=== PATIENT | female | born 1935 | race Caucasian/White ===

== ENCOUNTER 2017-11-02 14:38 | Emergency (ER) | payer MEDICARE ==
[2017-11-08 13:54] VITALS: BMI 38.2
== END 2017-11-02 19:36 | disposition home or self-care (01) ==
LOC: D.ER 14:38
DX: S40.012A Contusion of left shoulder, initial encounter (principal); W01.0XXA Fall on same level from slipping, tripping and stumbling without subsequent striking against object, initial encounter; Y93.89 Activity, other specified; Y92.012 Bathroom of single-family (private) house as the place of occurrence of the external cause; S92.321A Displaced fracture of second metatarsal bone, right foot, initial encounter for closed fracture; S92.331A Displaced fracture of third metatarsal bone, right foot, initial encounter for closed fracture; S92.341A Displaced fracture of fourth metatarsal bone, right foot, initial encounter for closed fracture; S62.111A Displaced fracture of triquetrum [cuneiform] bone, right wrist, initial encounter for closed fracture; I10 Essential (primary) hypertension; G47.00 Insomnia, unspecified

== ENCOUNTER 2017-11-03 17:08 | Inpatient (IN) | payer MEDICARE, OTHER ==
[~2017-11-03] VITALS: Ht 165.1 cm; Wt 104.5 kg
--- NOTE | ~2017-11-03 | EC ---
PATIENT:RICHARD CAMARENA DATE OF SERVICE: 11/03/17 SEX: F MEDICAL RECORD: [id number] DATE OF : [birth year] LOCATION:D.M2 D.213 AGE OF PATIENT: 81 ADMISSION DATE: 11/03/17 REFERRING PHYSICIAN: INTERPRETING PHYSICIAN: NATHAN LEGER MD ECHOCARDIOGRAM REPORT ECHO CHARGES 4 ECHO COMPLETE CLINICAL DIAGNOSIS: CHF ECHOCARDIOGRAPHIC MEASUREMENTS (adult normal given) AC root (d.<3.7cm) 3.4 cm LV Septum d (<1.2 cm> 1.6 cm Valve Excursion 1.7 cm LV Septum (systole) 2.2 cm Left Atria (s.<4.0cm> 4.1 cm LVPW d(<1.2cm) 1.8 cm RV (d.<2.3cm) 3.7 cm LVPW (sytole) 2.3 cm LV diastole(<5.6CM) 4.0 cm MV E-F(>70mm/sec) cm LV systole 2.3 cm LVOT Diameter 1.7 cm MV exc.(>10mm) 1.6 cm Est.ejection fraction (50-75%) % Pericardial Effusion N DOPPLER: LVIT cm/sec A 113 cm/sec E 97.0 cm/sec LA cm/sec RVSP 38 mmHg LVOT 129 cm/sec AOP1/2T m/s Asc. Ao 189 cm/sec RVOT 104 cm/sec RA cm/sec PA 134 cm/sec AV Gradient Peak 14.22mmHg AV Mean 6.35 mmHg AV Area 1.5 cm MV Gradient Peak 6.10 mmHg MV Mean 2.51 mmHg MV Area cm COMMENTS: Executive Producer: Zachariah DALTON Hadoop Analyst: 2 Dr. Gabriel TAPE# PACS DATE OF SERVICE: 11/05/2017 PROCEDURE: Echocardiogram. FINDINGS: 1. Left ventricular chamber size is within normal limits. Left ventricular systolic function is normal. Overall ejection fraction estimated at 65%. 2. Left atrium is mildly enlarged at 4.1 cm. Right atrium and right ventricular chamber sizes are as well mildly dilated. 3. Valvular structures have normal structure and motion. No evidence of mitral ECHOCARDIOGRAM REPORT [id number] RICHARD CAMARENA valve prolapse is present. 4. Doppler interrogation reveals trace mitral regurgitation, mild tricuspid regurgitation, no other valvular insufficiency or stenosis. Pulmonary systolic pressure is normal estimated 30 mmHg. 5. No evidence of pericardial effusion or left ventricular thrombus. TRANSINT:[id number] Voice Confirmation ID: [id number] DOCUMENT ID: [id number] NATHAN LEGER MD at 1800 CC: [id number] DICTATION DATE: 11/05/17 1314 AUTOMOTIVE WORKER: 11/05/17 1321 DIS IN 11/06/17 [place] [id number] [place] [id number]
[2017-11-03 19:00] VITALS: BP 178/89
[2017-11-03 19:03] LABS: BASOPHILS 0.2 % (0-2); EOSINOPHILS 1.3 % (0-7); HEMATOCRIT 42.6 % (36.0-48.0); HEMOGLOBIN 14.2 g/dL (12-16); IMMATURE GRANULOCYTES 0.3 % (0-5); LYMPHOCYTES 15.1 % (15-50); MCH 31.6 pg (26.0-34.0); MCHC 33.3 g/dL (31.0-37.0); MCV 94.9 fL (80.0-100.0); MEAN PLATELET VOLUME 10.5 fL (7.4-10.4); MONOCYTES 8.6 % (2-11); NEUTROPHILS 74.5 % (40-80); PLATELET COUNT 255 10x3/uL (130-400); RBC 4.49 10x6/uL (4.00-5.40); RDW 14.2 % (11.5-14.5); WBC 10.4 10x3/uL (4.8-10.8)
[2017-11-03 19:44] LABS: ALBUMIN 4.1 g/dL (3.4-5.0); ALKALINE PHOSPHATASE 82 U/L (46-116); ALT (SGPT) 21 U/L (10-68); BILIRUBIN - TOTAL 0.47 mg/dL (0.2-1.3); CALC OSMOLALITY 292 mosm/kg (275-300); CALCIUM 9.3 mg/dL (8.5-10.1); CARBON DIOXIDE 25.9 mmol/L (21.0-32.0); CHLORIDE - SERUM 107 mmol/L (98-107); CREATININE - SERUM 0.6 mg/dL (0.6-1.3); GLUCOSE 108 mg/dL (74-106); POTASSIUM - SERUM 4.1 mmol/L (3.5-5.1); PROTEIN - SERUM 7.3 g/dL (6.4-8.2); SODIUM 145 mmol/L (136-145); UREA NITROGEN 20 mg/dL (7-18); eGFR NON AFRICAN AMERICAN > 90 mL/min (90-120)
[2017-11-03 20:04] LABS: CKMB 2.1 U/L (0.0-3.6); CREATINE KINASE 258 UL (21-215); MAGNESIUM - SERUM 2.4 mg/dL (1.8-2.4); TROPONIN-I 0.001 ng/mL (0.000-0.060)
[2017-11-03 20:05] LABS: THYROID STIMULATING HORMONE 1.03 uIU/mL (0.36-3.74)
[2017-11-03 21:36] LABS: APPEARANCE CLEAR (CLEAR); BILIRUBIN NEGATIVE (NEGATIVE); COLOR YELLOW (YELLOW); GLUCOSE NEGATIVE (NEGATIVE); KETONE SMALL mg/dL (NEGATIVE); NITRITE NEGATIVE (NEGATIVE); PROTEIN NEGATIVE (NEGATIVE); UROBILINOGEN NORMAL (NORMAL)
[2017-11-03 21:40] LABS: BACTERIA FEW /hpf (NONE SEEN); EPITHELIAL CELLS 0-5 /hpf (0-5); MUCUS <1+ /lpf (NONE SEEN); RED CELLS - URINE OCC /hpf (0-5)
[2017-11-04] MEDS ORDERED: XANAX1 MG PO (00:10)
[2017-11-04] MEDS ORDERED: LOPRESSOR25 MG PO (00:11)
[2017-11-04 04:00] VITALS: BP 172/55
[2017-11-04 04:08] VITALS: BP 178/89; BMI 38.3
[2017-11-04 06:14] LABS: BASOPHILS 0.2 % (0-2); EOSINOPHILS 3.7 % (0-7); HEMATOCRIT 36.9 % (36.0-48.0); HEMOGLOBIN 12.1 g/dL (12-16); IMMATURE GRANULOCYTES 0.3 % (0-5); LYMPHOCYTES 20.5 % (15-50); MCHC 32.8 g/dL (31.0-37.0); MCV 94.6 fL (80.0-100.0); MONOCYTES 10.5 % (2-11); NEUTROPHILS 64.8 % (40-80); PLATELET COUNT 228 10x3/uL (130-400); RDW 14.4 % (11.5-14.5); WBC 8.8 10x3/uL (4.8-10.8)
[2017-11-04 06:42] LABS: CALC OSMOLALITY 282 mosm/kg (275-300); CALCIUM 8.3 mg/dL (8.5-10.1); CARBON DIOXIDE 25.9 mmol/L (21.0-32.0); CHLORIDE - SERUM 106 mmol/L (98-107); CREATININE - SERUM 0.6 mg/dL (0.6-1.3); GLUCOSE 95 mg/dL (74-106); SODIUM 141 mmol/L (136-145); UREA NITROGEN 17 mg/dL (7-18); eGFR NON AFRICAN AMERICAN > 90 mL/min (90-120)
[2017-11-04 08:47] VITALS: BP 132/57
[2017-11-04 12:33] VITALS: BP 116/59
[2017-11-04 15:05] VITALS: Ht 165.1 cm; Wt 104.5 kg
[2017-11-04 16:28] VITALS: BP 131/64
[2017-11-04 21:44] VITALS: BP 129/47
[2017-11-05 01:15] VITALS: BP 122/71
[2017-11-05 05:58] VITALS: BP 152/81
[2017-11-05 06:11] LABS: BASOPHILS 0.3 % (0-2); EOSINOPHILS 4.8 % (0-7); HEMATOCRIT 39.8 % (36.0-48.0); HEMOGLOBIN 12.8 g/dL (12-16); IMMATURE GRANULOCYTES 0.3 % (0-5); MCH 31.1 pg (26.0-34.0); MCHC 32.2 g/dL (31.0-37.0); MONOCYTES 8.7 % (2-11); NEUTROPHILS 64.9 % (40-80); PLATELET COUNT 239 10x3/uL (130-400); RBC 4.12 10x6/uL (4.00-5.40); RDW 14.4 % (11.5-14.5); WBC 8.6 10x3/uL (4.8-10.8)
[2017-11-05 06:25] LABS: CALC OSMOLALITY 284 mosm/kg (275-300); CALCIUM 8.6 mg/dL (8.5-10.1); CARBON DIOXIDE 26.1 mmol/L (21.0-32.0); CHLORIDE - SERUM 107 mmol/L (98-107); CREATININE - SERUM 0.7 mg/dL (0.6-1.3); GLUCOSE 101 mg/dL (74-106); POTASSIUM - SERUM 4.1 mmol/L (3.5-5.1); SODIUM 142 mmol/L (136-145); UREA NITROGEN 17 mg/dL (7-18); eGFR NON AFRICAN AMERICAN 85 mL/min (90-120)
[2017-11-05 06:29] LABS: MCV 96.6 fL (80.0-100.0)
[2017-11-05 08:06] VITALS: BP 160/76
[2017-11-05 11:18] VITALS: BP 134/72
[2017-11-05 15:42] VITALS: BP 141/71
[2017-11-05 19:00] VITALS: BP 189/83
[2017-11-06 04:00] VITALS: BP 158/80
[2017-11-06 06:52] LABS: HEMATOCRIT 39.2 % (36.0-48.0); LYMPHOCYTES 20.7 % (15-50); MCHC 33.2 g/dL (31.0-37.0); MEAN PLATELET VOLUME 10.1 fL (7.4-10.4); NEUTROPHILS 69.6 % (40-80); PLATELET COUNT 239 10x3/uL (130-400); RBC 4.19 10x6/uL (4.00-5.40); RDW 13.8 % (11.5-14.5)
[2017-11-06 06:53] LABS: MCV 93.6 fL (80.0-100.0)
[2017-11-06 07:03] LABS: CALC OSMOLALITY 283 mosm/kg (275-300); CALCIUM 8.8 mg/dL (8.5-10.1); CARBON DIOXIDE 27.6 mmol/L (21.0-32.0); CHLORIDE - SERUM 107 mmol/L (98-107); CREATININE - SERUM 0.7 mg/dL (0.6-1.3); GLUCOSE 102 mg/dL (74-106); SODIUM 142 mmol/L (136-145); UREA NITROGEN 16 mg/dL (7-18); eGFR NON AFRICAN AMERICAN 85 mL/min (90-120)
[2017-11-06 08:23] VITALS: BP 125/79
[2017-11-06 11:42] VITALS: BP 100/89
[2017-11-06 15:47] VITALS: BP 176/81
== END 2017-11-06 17:56 | DRG 194 ==
LOC: D.ER 17:08 → D.M2 21:34
PROVIDERS: Family Medicine; Internal Medicine Nephrology
DX: J18.9 Pneumonia, unspecified organism (principal); J98.11 Atelectasis; N17.9 Acute kidney failure, unspecified; G82.20 Paraplegia, unspecified; M25.512 Pain in left shoulder; I10 Essential (primary) hypertension; E78.5 Hyperlipidemia, unspecified; I34.1 Nonrheumatic mitral (valve) prolapse; S62.101D Fracture of unspecified carpal bone, right wrist, subsequent encounter for fracture with routine healing; S92.901D Unspecified fracture of right foot, subsequent encounter for fracture with routine healing; W19.XXXD Unspecified fall, subsequent encounter; G47.00 Insomnia, unspecified; Z86.12 Personal history of poliomyelitis

== ENCOUNTER 2017-11-06 17:04 | Inpatient (IN) | payer MEDICARE, OTHER ==
[~2017-11-06] VITALS: Ht 165.1 cm; Wt 104.3 kg
--- NOTE | ~2017-11-06 | RHP ---
PATIENT: RICHARD CAMARENA MEDICAL RECORD: [id number] ACCOUNT: [id number] LOCATION:[facility]1114 : 37 ADMISSION DATE: 11/06/17 REHABILITATION HISTORY AND PHYSICAL EXAMINATION POST ADMISSION PHYSICIAN EXAMINATION DATE OF ADMISSION: 11/06/2017. ADMITTING DIAGNOSES: Debility secondary to right lower lobe pneumonia. HISTORY OF PRESENT ILLNESS: The patient is admitted to an inpatient rehab for debility secondary to pneumonia. A 81-year-old female patient with a history of hypertension, hyperlipidemia, mitral valve prolapse, and insomnia, presented to our Emergency Room with complaints of having increasing shortness of breath that had presented approximately 1-1/2 weeks prior to this. The patient stated she started getting the cough a week prior to this. On 11/03/2017, she took some vitamins, felt somewhat better. On 11/02/2017, she fell and when she was seen in the Emergency Room, we found to have a fracture on her right foot and wrist area and left shoulder. She was to follow up with ortho surgery the following day; however, she cannot get out of her car at her appointment due to increased pain and shortness of breath. She was brought in for further evaluation and treatment, was admitted for a right lower lobe pneumonia, pulmonary edema, acute kidney injury. 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 She has had increased pain secondary to her fall. She is having difficulty with ADLs and mobility at this time. She was moderately independent with both ADLs and mobility prior to the recent fall. She is currently set up from total assist for ADLs and max assist for mobility. She would like to return back to her apartment if possible. COMORBIDITIES: Include pneumonia, pulmonary edema, postpolio syndrome, hypertension, right foot fracture, right wrist fracture, acute kidney injury, hyperlipidemia, paraplegic gait. PAST MEDICAL HISTORY: Significant for weakness. She has had tinnitus, hypertension, constipation, polio, paralysis, insomnia. PAST SURGICAL HISTORY: Includes a fusion of both ankles. ALLERGIES: CODEINE AND ERYTHROMYCIN. CURRENT MEDICATIONS: Include Tylenol 650 q.h.s., acetaminophen 650 q.4 hours p.r.n., metoprolol 25 mg b.i.d., Xanax 1 mg q.h.s., and MiraLax 17 grams in 8 ounces of water daily. HABITS: No tobacco use. FAMILY HISTORY: Noncontributory. SOCIAL HISTORY: The patient hopes to return back home to her apartment if possible. REVIEW OF SYSTEMS: GENERAL: Does complain of weakness. HEENT: She denies cold, cough, or congestion. HISTORY AND PHYSICAL [id number] NICOLRICHARD CARDIOVASCULAR: Denies chest pain. PHYSICAL EXAMINATION: VITAL SIGNS: Stable, afebrile. GENERAL: A somewhat obese female, in no acute distress, alert upon exam. HEENT: Normocephalic and atraumatic. Mucosa moist. NECK: Supple. No lymphadenopathy. LUNGS: Clear. HEART: Regular rate and rhythm. ABDOMEN: Benign. EXTREMITIES: Does have noted deformities of her ankles and also bruising of her upper extremities. NEUROLOGIC: Consistent with diffuse weakness. LABORATORY DATA: Her white count 9.2, H&H 12 and 37, and platelet count was noted to be 246. Chemistries show a sodium 142, potassium 4.2, BUN and creatinine of 23 and 0.7 and blood sugar was noted to be 101. ASSESSMENT: This is a 81-year-old female patient admitted to the rehab with a working diagnosis of debility secondary to pneumonia complicated by postpolio syndrome. The patient has potential to make improvement. We instituted the following multidisciplinary therapies including to, but not limited to physical, occupational, respiratory, speech, nutritional services, prosthetics and orthotics. Given her complex condition and risk for more complications, rehabilitation services cannot be provided at a low level of care such as a shelter facility. PLAN: 1. Admit to [facility] rehab for intensive inpatient therapy to include the following disciplines: A. Physical therapy to improve gait, all transfer skills and bed mobility to a modified independent level. B. Occupational therapy to improve activities of daily living to a modified independent level. C. Case management to assist with discharge planning and placement options. D. Nutrition to assist with nutritional needs. E. Rehabilitation nursing to assist with monitoring the patient's underlying medical conditions and to assist with any type of bowel or bladder management. 2. The patient's current medication and medical care will be continued. 3. The patient will be placed on standard fall precautions. 4. The patient's estimated length of stay is approximately 7-10 days. 5. Discuss this patient during care team staff meeting this week. TRANSINT:[id number] Voice Confirmation ID: [id number] DOCUMENT ID: [id number] MELODY notes whether there has been none or any medical/functional change since admission: - No change since prescreen. MELODY attests patient continues to be appropriate for IRF: - Continues to be appropriate. HISTORY AND PHYSICAL [id number] RICHARD CAMARENA SCOTT MD at 1802 CC: [id number] DICTATION DATE: 11/08/17 0843 CREDIT AUTHORIZER: 11/08/17 1043 ADM IN [facility] [address] [place] [id number]
[~2017-11-06 17:04] MED LIST: LOPRESSOR25 MG PO; XANAX1 MG PO
[2017-11-06 19:46] VITALS: BP 138/72; BMI 38.3
[2017-11-07 05:08] LABS: BASOPHILS 0.2 % (0-2); EOSINOPHILS 4.8 % (0-7); HEMATOCRIT 37.9 % (36.0-48.0); HEMOGLOBIN 12.5 g/dL (12-16); IMMATURE GRANULOCYTES 0.2 % (0-5); LYMPHOCYTES 17.8 % (15-50); MCH 31.1 pg (26.0-34.0); MCV 94.3 fL (80.0-100.0); MEAN PLATELET VOLUME 10.3 fL (7.4-10.4); MONOCYTES 8.9 % (2-11); NEUTROPHILS 68.1 % (40-80); PLATELET COUNT 246 10x3/uL (130-400); RBC 4.02 10x6/uL (4.00-5.40); WBC 9.2 10x3/uL (4.8-10.8)
[2017-11-07 05:15] LABS: CALC OSMOLALITY 286 mosm/kg (275-300); CALCIUM 8.5 mg/dL (8.5-10.1); CARBON DIOXIDE 26.7 mmol/L (21.0-32.0); CHLORIDE - SERUM 107 mmol/L (98-107); CREATININE - SERUM 0.7 mg/dL (0.6-1.3); GLUCOSE 101 mg/dL (74-106); POTASSIUM - SERUM 4.2 mmol/L (3.5-5.1); SODIUM 142 mmol/L (136-145); eGFR NON AFRICAN AMERICAN 85 mL/min (90-120)
[2017-11-07 05:16] LABS: UREA NITROGEN 23 mg/dL (7-18)
[2017-11-07 09:00] VITALS: BP 148/57
[2017-11-07 19:33] VITALS: BP 160/92
[2017-11-08 08:00] VITALS: BP 211/91
[2017-11-08 13:54] VITALS: Ht 165.1 cm; Wt 104.3 kg
[2017-11-08 20:31] VITALS: BP 144/60
[2017-11-09 08:00] VITALS: BP 176/69
[2017-11-09 21:00] VITALS: BP 175/80
[2017-11-10 06:48] LABS: BASOPHILS 0.4 % (0-2); EOSINOPHILS 6.5 % (0-7); HEMATOCRIT 39.1 % (36.0-48.0); HEMOGLOBIN 12.8 g/dL (12-16); IMMATURE GRANULOCYTES 0.1 % (0-5); LYMPHOCYTES 24.4 % (15-50); MCH 30.9 pg (26.0-34.0); MCHC 32.7 g/dL (31.0-37.0); MCV 94.4 fL (80.0-100.0); MEAN PLATELET VOLUME 10.2 fL (7.4-10.4); MONOCYTES 7.2 % (2-11); NEUTROPHILS 61.4 % (40-80); PLATELET COUNT 282 10x3/uL (130-400); RBC 4.14 10x6/uL (4.00-5.40); RDW 14.3 % (11.5-14.5); WBC 6.9 10x3/uL (4.8-10.8)
[2017-11-10 06:59] LABS: CALC OSMOLALITY 286 mosm/kg (275-300); CALCIUM 8.6 mg/dL (8.5-10.1); CARBON DIOXIDE 27.5 mmol/L (21.0-32.0); CHLORIDE - SERUM 108 mmol/L (98-107); CREATININE - SERUM 0.6 mg/dL (0.6-1.3); GLUCOSE 93 mg/dL (74-106); POTASSIUM - SERUM 4.3 mmol/L (3.5-5.1); SODIUM 142 mmol/L (136-145); UREA NITROGEN 23 mg/dL (7-18); eGFR NON AFRICAN AMERICAN > 90 mL/min (90-120)
[2017-11-10 07:46] VITALS: BP 210/79
[2017-11-10 19:07] VITALS: BP 160/88
[2017-11-11 20:26] VITALS: BP 128/87
[2017-11-12 05:46] LABS: BASOPHILS 0.3 % (0-2); EOSINOPHILS 5.2 % (0-7); HEMATOCRIT 37.1 % (36.0-48.0); HEMOGLOBIN 12.2 g/dL (12-16); IMMATURE GRANULOCYTES 0.3 % (0-5); LYMPHOCYTES 27.7 % (15-50); MCHC 32.9 g/dL (31.0-37.0); MCV 94.4 fL (80.0-100.0); MEAN PLATELET VOLUME 10.3 fL (7.4-10.4); MONOCYTES 9.1 % (2-11); NEUTROPHILS 57.4 % (40-80); PLATELET COUNT 278 10x3/uL (130-400); RBC 3.93 10x6/uL (4.00-5.40); WBC 6.9 10x3/uL (4.8-10.8)
[2017-11-12 05:54] LABS: CALC OSMOLALITY 282 mosm/kg (275-300); CALCIUM 8.5 mg/dL (8.5-10.1); CHLORIDE - SERUM 106 mmol/L (98-107); CREATININE - SERUM 0.7 mg/dL (0.6-1.3); GLUCOSE 92 mg/dL (74-106); POTASSIUM - SERUM 4.2 mmol/L (3.5-5.1); SODIUM 140 mmol/L (136-145); UREA NITROGEN 24 mg/dL (7-18); eGFR NON AFRICAN AMERICAN 85 mL/min (90-120)
[2017-11-12 08:00] VITALS: BP 143/56
[2017-11-12 19:00] VITALS: BP 146/51
[2017-11-13 08:00] VITALS: BP 152/065
[2017-11-13 19:35] VITALS: BP 146/66
[2017-11-14 09:12] VITALS: BP 134/75; BP 183/78
[2017-11-14 20:00] VITALS: BP 145/52
[2017-11-15 06:09] LABS: BASOPHILS 0.3 % (0-2); HEMATOCRIT 37.5 % (36.0-48.0); HEMOGLOBIN 12.3 g/dL (12-16); IMMATURE GRANULOCYTES 0.1 % (0-5); LYMPHOCYTES 25.8 % (15-50); MCH 30.8 pg (26.0-34.0); MCHC 32.8 g/dL (31.0-37.0); MEAN PLATELET VOLUME 10.3 fL (7.4-10.4); MONOCYTES 8.3 % (2-11); NEUTROPHILS 60.5 % (40-80); PLATELET COUNT 292 10x3/uL (130-400); RBC 3.99 10x6/uL (4.00-5.40); RDW 13.9 % (11.5-14.5); WBC 7.4 10x3/uL (4.8-10.8)
[2017-11-15 06:37] LABS: CALC OSMOLALITY 281 mosm/kg (275-300); CALCIUM 8.2 mg/dL (8.5-10.1); CARBON DIOXIDE 27.2 mmol/L (21.0-32.0); CHLORIDE - SERUM 106 mmol/L (98-107); CREATININE - SERUM 0.5 mg/dL (0.6-1.3); GLUCOSE 90 mg/dL (74-106); POTASSIUM - SERUM 4.2 mmol/L (3.5-5.1); SODIUM 140 mmol/L (136-145); UREA NITROGEN 20 mg/dL (7-18); eGFR NON AFRICAN AMERICAN > 90 mL/min (90-120)
[2017-11-15 08:00] VITALS: BP 125/51
[2017-11-15 20:00] VITALS: BP 140/57
[2017-11-16 08:00] VITALS: BP 140/60
[2017-11-16 19:26] VITALS: BP 146/70
[2017-11-17 08:34] VITALS: BP 134/65
[2017-11-17 20:30] VITALS: BP 120/37
[2017-11-18 08:00] VITALS: BP 143/50
[2017-11-18 21:16] VITALS: BP 143/61
[2017-11-19 06:48] LABS: BASOPHILS 0.3 % (0-2); EOSINOPHILS 5.3 % (0-7); HEMOGLOBIN 12.5 g/dL (12-16); IMMATURE GRANULOCYTES 0.1 % (0-5); LYMPHOCYTES 28.9 % (15-50); MCH 30.9 pg (26.0-34.0); MCHC 32.9 g/dL (31.0-37.0); MCV 93.8 fL (80.0-100.0); MEAN PLATELET VOLUME 10.8 fL (7.4-10.4); MONOCYTES 6.6 % (2-11); NEUTROPHILS 58.8 % (40-80); PLATELET COUNT 299 10x3/uL (130-400); RBC 4.05 10x6/uL (4.00-5.40); RDW 14.3 % (11.5-14.5); WBC 6.8 10x3/uL (4.8-10.8)
[2017-11-19 06:55] LABS: CALC OSMOLALITY 286 mosm/kg (275-300); CALCIUM 8.4 mg/dL (8.5-10.1); CARBON DIOXIDE 26.4 mmol/L (21.0-32.0); CHLORIDE - SERUM 107 mmol/L (98-107); CREATININE - SERUM 0.7 mg/dL (0.6-1.3); GLUCOSE 87 mg/dL (74-106); POTASSIUM - SERUM 4.7 mmol/L (3.5-5.1); SODIUM 142 mmol/L (136-145); UREA NITROGEN 26 mg/dL (7-18); eGFR NON AFRICAN AMERICAN 85 mL/min (90-120)
[2017-11-19 08:34] VITALS: BP 136/64
[2017-11-19 21:39] VITALS: BP 156/73
[2017-11-20 14:27] VITALS: BP 164/64
[2017-11-21 00:07] VITALS: BP 151/59
[2017-11-21 08:36] VITALS: BP 139/49
[2017-11-21 19:00] VITALS: BP 131/37
[2017-11-22 05:44] LABS: BASOPHILS 0.4 % (0-2); EOSINOPHILS 4.6 % (0-7); HEMATOCRIT 39.9 % (36.0-48.0); IMMATURE GRANULOCYTES 0.1 % (0-5); LYMPHOCYTES 27.8 % (15-50); MCH 30.8 pg (26.0-34.0); MCHC 32.6 g/dL (31.0-37.0); MCV 94.5 fL (80.0-100.0); MEAN PLATELET VOLUME 10.6 fL (7.4-10.4); MONOCYTES 7.8 % (2-11); NEUTROPHILS 59.3 % (40-80); PLATELET COUNT 262 10x3/uL (130-400); RBC 4.22 10x6/uL (4.00-5.40); RDW 14.3 % (11.5-14.5)
[2017-11-22 05:57] LABS: CALC OSMOLALITY 284 mosm/kg (275-300); CALCIUM 8.4 mg/dL (8.5-10.1); CARBON DIOXIDE 26.8 mmol/L (21.0-32.0); CHLORIDE - SERUM 107 mmol/L (98-107); CREATININE - SERUM 0.7 mg/dL (0.6-1.3); GLUCOSE 87 mg/dL (74-106); POTASSIUM - SERUM 4.4 mmol/L (3.5-5.1); SODIUM 141 mmol/L (136-145); UREA NITROGEN 27 mg/dL (7-18); eGFR NON AFRICAN AMERICAN 85 mL/min (90-120)
[2017-11-22 08:00] VITALS: BP 145/64
[2017-11-22] MEDS ORDERED: CATAPRES0.1 MG PO (08:51)
[2017-11-22] MEDS ORDERED: NORVASC2.5 MG PO (08:51)
== END 2017-11-22 11:21 | DRG 947 ==
LOC: D.REHAB 17:04
PROVIDERS: Emergency Medicine
DX: R53.81 Other malaise (principal); J18.9 Pneumonia, unspecified organism; J81.1 Chronic pulmonary edema; G82.20 Paraplegia, unspecified; N17.9 Acute kidney failure, unspecified; G14 Postpolio syndrome; I10 Essential (primary) hypertension; E78.5 Hyperlipidemia, unspecified; S92.901A Unspecified fracture of right foot, initial encounter for closed fracture; S62.101A Fracture of unspecified carpal bone, right wrist, initial encounter for closed fracture; W19.XXXA Unspecified fall, initial encounter

== ENCOUNTER → 2018-02-16 11:21 | Outpatient (CLI) | payer MEDICARE, OTHER ==
[2017-11-08 13:54] VITALS: BMI 38.2
[~2018-02-16 11:21] MED LIST changes: +CATAPRES0.1 MG PO; +NORVASC2.5 MG PO
== END | disposition home or self-care (01) ==
LOC: D.RAD 11:21
DX: M25.551 Pain in right hip (principal)

== ENCOUNTER → 2018-03-09 10:15 | Outpatient (CLI) | payer MEDICARE, OTHER ==
[2017-11-08 13:54] VITALS: BMI 38.2
[2018-03-09 10:55] LABS: CALC OSMOLALITY 281 mosm/kg (275-300); CALCIUM 9.1 mg/dL (8.5-10.1); CARBON DIOXIDE 29.7 mmol/L (21.0-32.0); CHLORIDE - SERUM 105 mmol/L (98-107); CREATININE - SERUM 0.7 mg/dL (0.6-1.3); GLUCOSE 115 mg/dL (74-106); MAGNESIUM - SERUM 2.1 mg/dL (1.8-2.4); POTASSIUM - SERUM 4.4 mmol/L (3.5-5.1); SODIUM 139 mmol/L (136-145); UREA NITROGEN 22 mg/dL (7-18); eGFR NON AFRICAN AMERICAN 85 mL/min (90-120)
== END | disposition home or self-care (01) ==
LOC: D.LABREF 10:15
PROVIDERS: Internal Medicine
DX: J81.1 Chronic pulmonary edema (principal); Z51.81 Encounter for therapeutic drug level monitoring; Z79.899 Other long term (current) drug therapy